=== PATIENT | female | born 1955 | race Caucasian/White ===

== ENCOUNTER 2018-05-17 10:23 | Emergency (ER) | payer OTHER ==
--- NOTE | 2018-05-17 10:43 | EDPHY ---
H & P Stated Complaint: fall skiing thurs bilat knee pain Time Seen by Provider: 05/17/18 10:39 HPI/ROS: HPI: This is a 63-year-old female who presents with Chief Complaint: fall skiing thurs bilat knee pain Location: Bilateral medial knee Quality: Injury, pain Duration: 2 days ago Signs and Symptoms: No bleeding, no radiation, no numbness, no weakness, no tingling, no incontinence, + decreased range of motion, no swelling, + pain, no fever Timing: Acute, constant Severity: Moderate Context: Patient was when she was getting off the chair lift and fell in a frog-leg position. She reports that she felt pain on the medial of her knee. She reports that she has stiffness in the morning and pain with weight-bearing. She reports that she has continued pain on the medial aspect of both knees that are equal. Denies LOC/head injury/neck pain/dizziness/nausea /vomiting/amnesia/radiation/weakness. Modifying Factors: None Comment: ROS: A comprehensive 10 system review of systems is otherwise negative aside from elements mentioned in the history of present illness. MEDICAL/SURGICAL/SOCIAL HISTORY: Medical history: Generally healthy. Does not take any regular medications. Surgical history: Denies Social history: Never smoked. Employed. CONSTITUTIONAL: Physically fit, polite and cooperative adult white female who appears younger than stated age, awake and alert, no obvious distress HEENT: Atraumatic and normocephalic. NECK: supple, no midline tenderness, flexion 45 degrees, extension 45 degrees, right and left lateral flexion 45 degrees. No meningismus. Cardiovascular: Normal S1/S2, regular rate, regular rhythm, without murmur rub or gallop. PULMONARY/CHEST: Symmetrical and nontender. Clear to auscultation bilaterally. Good air movement. No accessory muscle usage. ABDOMEN: Soft, nondistended, nontender. EXTREMITIES: 2/2 pulses, strength 5/5, bilateral KNEE: no effusion, no medial and lateral joint line tenderness, full extension to 180, flexion to 120. Moderate pain with varus and valgus exam. Mild pain with anterior drawer or posterior drawer test. Extensor mechanism intact. DIP/PIP/MCP flexion/extension intact with good light touch sensation. no deformities, no clubbing, no cyanosis or edema. NEUROLOGICAL: no focal neuro deficits. GCS 15. Light touch sensation intact. SKIN: Warm and dry, no erythema. no rash. Good capillary refill. Source: Patient Exam Limitations: No limitations - Personal History Current Tetanus Diphtheria and Acellular Pertussis (TDAP): Yes - Medical/Surgical History Hx Asthma: No Hx Chronic Respiratory Disease: No Hx Diabetes: No Hx Cardiac Disease: No Hx Renal Disease: No Hx Cirrhosis: No Hx Alcoholism: No Hx HIV/AIDS: No Hx Splenectomy or Spleen Trauma: No Other PMH: denies - Social History Smoking Status: Never smoked Constitutional: Initial Vital Signs Temperature (C) 36.4 C 05/17/18 10:26 Heart Rate 82 05/17/18 10:26 Respiratory Rate 18 05/17/18 10:26 Blood Pressure 178/100 H 05/17/18 10:26 O2 Sat (%) 100 05/17/18 10:26 O2 Delivery Mode Room Air Allergies/Adverse Reactions: No Known Allergies Allergy (Unverified 05/17/18 10:26) Home Medications: Medication Instructions Recorded Estrogen,Con/M-Progest Acet 05/17/18 oxyCODONE/APAP 5/325 [Percocet 1 - 2 tab PO Q4H PRN #10 tab 05/17/18 5/325 (*)] Medical Decision Making Procedures: Procedure: Splint placement. A knee immobilizer and crutches were applied by the Emergency Room bench repair technician. After application of the splint I returned and re-examined the patient. The splint was adequately immobilizing the joint and distal to the splint the patient's circulation and sensation was intact. ED Course/Re-evaluation: Vital signs reviewed and show elevated blood pressure likely due to pain. Patient has politely declined x-ray imaging as she is requesting MRI in the emergency room No neurological deficits to warrant emergent MRI Clinical exam is consistent with MCL, ACL internal derangement Placed in knee immobilizer, crutches, orthopedic follow-up This patient was seen under the supervision of my secondary supervising physician. I evaluated care for this patient independently. Discussed this patient with Dr. Damian who did not see the patient. Differential Diagnosis: Knee injury while [] including but not limited to fracture, ACL injury, contusion, muscular strain, and meniscus injury. Departure - Departure Disposition: Home, Routine, Self-Care Clinical Impression: Sprain of both knees Internal derangement of knee Qualifiers: Laterality: unspecified laterality Qualified Code(s): M23.90 - Unspecified internal derangement of unspecified knee Condition: Good Instructions: Knee Sprain (ED), Crutch Instructions (ED), Knee Immobilizer (ED) Additional Instructions: Wear the knee brace while out of bed until pain free or seen by Orthopedics. Use crutches to aid ambulation. Start with toe-touch weight-bearing status. Take Tylenol 650 mg every 4 hr and/or ibuprofen 600 mg every 8 hr with food as needed for pain. Use Percocet every 6 hours as needed for severe/break through pain. Do not use Tylenol and Percocet concomitantly. Apply ice for 30 minutes at a time; 2-3 times per day for the next 1-2 days. Follow up with Orthopedics in 5-7 days at which time they will evaluate and recommend with you if conservative management versus MRI is indicated. Referrals: TOOTIE DELANEY [Primary Care Provider] - As per Instructions Don Melo MD [Medical Doctor] - As per Instructions Prescriptions: oxyCODONE/APAP 5/325 [Percocet 5/325 (*)] 1 - 2 tab PO Q4H PRN #10 tab PRN Reason: Pain, Severe
[2018-05-17 11:15] VITALS: BP 166/109
== END 2018-05-17 11:14 | disposition home or self-care (01) ==
DX: M23.91 Unspecified internal derangement of right knee (principal); M23.92 Unspecified internal derangement of left knee; V00.321A Fall from snow-skis, initial encounter; Y93.23 Activity, snow (alpine) (downhill) skiing, snowboarding, sledding, tobogganing and snow tubing; Y92.838 Other recreation area as the place of occurrence of the external cause
CPT/HCPCS: L1830

== ENCOUNTER → 2018-05-21 | Outpatient (CLI) | payer OTHER | LOC: BMCIMAGING 13:42 | PROVIDERS: ATTEND Orthopaedic Surgery Hand Surgery | DX: M17.0 Bilateral primary osteoarthritis of knee (principal) ==